=== PATIENT | male | born 1970 | race Native Hawaiian/Other Pacific Islander ===

== ENCOUNTER → 2016-08-27 | Outpatient (CLI) | payer OTHER ==
--- NOTE | 2016-08-27 09:10 | MR ---
EXAMINATION TYPE: MR knee LT wo con DATE OF EXAM: 08/27/2016 8:08 AM COMPARISON: NONE HISTORY: left knee pain TECHNIQUE: Multiplanar, multisequence imaging of the left knee is performed without IV contrast. FINDINGS: MEDIAL MENISCUS: There is pseudoextrusion of the medial meniscus. There is linear signal along the in ferior articular surface extending to the body suspicious for linear simple tear. LATERAL MENISCUS: Intrasubstance signal seen within the posterior horn compatible with myxoid degener ation. CRUCIATE LIGAMENTS: There is marked thickening and edema within the anterior cruciate ligament compat ible with a tear. PCL is intact. COLLATERAL LIGAMENTS: The medial collateral ligament and lateral collateral ligament complex are inta ct and unremarkable. EXTENSOR MECHANISM: Visualized quadriceps and patellar tendons are intact. EFFUSION: No significant suprapatellar joint effusion. POPLITEAL CYST: 1 x 1 x 3 cm septated popliteal fossa cyst TRICOMPARTMENT SPACES: Narrowing of the me dial compartment of the knee joint and patellofemoral joint noted. No erosive changes. BONE MARROW SIGNAL: No focal abnormal marrow signal is appreciated. IMPRESSION: 1. ACL tear 2. Linear tear posterior horn medial meniscus 3. Osteoarthritis
--- NOTE | 2016-08-27 22:08 | MR ---
EXAMINATION TYPE: MR knee RT wo con DATE OF EXAM: 08/27/2016 8:09 AM COMPARISON: Radiograph 09/12/2014 HISTORY: 46-year-old male with right knee pain TECHNIQUE: Multiplanar, multisequence imaging of the right knee is performed without IV contrast. FINDINGS: ACL is nonvisualized and appears ruptured. PCL, MCL, and LCL complex appear intact. The medial meniscus is diffusely degenerative, torn, an extruded with a 8 mm fragment in the superior gutter. Mild diffuse thinning of medial compartment articular cartilage without any high grade cartilage lesi on seen. There is degenerative signal within the lateral meniscus though some of the signal may contact the ti bial articular surface along the anterior horn seen only on one or 2 sagittal slices. The lateral men iscus is partially discoid. Overall lateral and patellofemoral compartment articular cartilage volume is maintained. Extensor mechanism is intact. Incidental bipartite patella. There is a small knee joint effusion and trace Smith's cyst. There is a 1.4 cm ganglion cyst at the o rigin of the medial head of the gastrocnemius and a 1.6 cm ganglion cyst posteriorly to the tibial at tachment of the PCL. Within the infrapatellar region, there is a heterogeneous structure showing some small cystic areas, predominant areas of cartilage signal, and some curvilinear low signal areas as well measuring 3.1 cm craniocaudal and 3.6 cm wide. There is has some mass effect bowing the patellar tendon anteriorly es pecially the distal lateral patellar tendon fibers. No underlying osseous erosions. In retrospect, th e radiographs of 09/12/2014 show a soft tissue shadow in the same region approximately of similar size . There is normal popliteal artery anatomy in muscle bulk. No suspicious bone marrow replacement. IMPRESSION: 1. Chronic ACL rupture given the lack of acute bone bruises. 2. Diffusely degenerative, torn, and extruded medial meniscus with an 8 mm fragment in the superior g utter. There is mild degenerative thinning of medial compartment articular cartilage. 3. Degenerative signal within a partially discoid lateral meniscus. Some of the signal within the ant erior horn may contact the tibial surface, possible tiny tear. 4. A 3.1 x 3.6 cm mass located in inferior Hoffa's fat has slight mass effect onto the overlying brooks llar tendon, but in retrospect, may have been present on the 09/12/2014 radiographs. There are some sm all cystic areas, larger areas which show signal similar to cartilage, and additional low signal area s as well. Differential considerations include giant intra-articular extrasynovial osteochondroma/par a-articular osteochondroma and PVNS with the former being favored given areas of cartilage signal and relative indolent course. There are also no osseous erosions to help support PVNS at this time. Cons ider surgical excision. 5. Small knee joint effusion and trace Smith's cyst.
== END | disposition home or self-care (01) ==
LOC: RADMRIMAIN 07:15
PROVIDERS: ATTEND Psychiatry & Neurology Pain Medicine
DX: M25.461 Effusion, right knee (principal); M71.21 Synovial cyst of popliteal space [Baker], right knee; S83.512A Sprain of anterior cruciate ligament of left knee, initial encounter; S83.242A Other tear of medial meniscus, current injury, left knee, initial encounter; M17.12 Unilateral primary osteoarthritis, left knee

== ENCOUNTER → 2017-06-02 | Outpatient (CLI) | payer OTHER ==
--- NOTE | 2017-06-02 10:39 | MR ---
EXAMINATION TYPE: MR lumbar spine wo con DATE OF EXAM: 06/02/2017 COMPARISON: NONE HISTORY: Low back pain TECHNIQUE: T1 and T2 axial and sagittal images of the lumbar spine are submitted. FINDINGS: There is no abnormal signal seen within the visualized spinal cord or paraspinal soft tissu es. At L1-2 there is degenerative disc disease with right paracentral broad-based disc herniation resulti ng in moderate anterior compression of thecal sac. Moderate right neural foraminal encroachment mild left foraminal encroachment. Facet arthropathy noted with evidence of spinal stenosis. At L2-3 there is moderate to severe degenerative disc disease. Broad-based central disc protrusion or small herniation results in moderate compression of thecal sac. Hypertrophic change of the ligamentu m flavum and facets contribute to moderate spinal stenosis and bilateral foraminal encroachment At L3-4 there is severe degenerative disc disease with broad-based central disc protrusion or herniat ion resulting in moderate central stenosis and bilateral foraminal encroachment. Hypertrophic change and ligamentum flavum and facet joints contribute. At L4-5 there is moderate to severe degenerative disc disease with a large central and right paracent ral disc herniation resulting in severe compression of the thecal sac. There is moderate bilateral fo raminal encroachment. At L5-S1 there is no disc herniation or canal stenosis. There is facet arthropathy. Neural foramina a re mildly narrowed. IMPRESSION: 1. Multilevel moderate to severe degenerative disc disease with multilevel disc herniations resulting in multilevel significant canal stenosis and foraminal encroachment. Large right paracentral disc he rniation L4-L5 results in right-sided foraminal encroachment and severe compression of the thecal sac .
== END | disposition home or self-care (01) ==
LOC: RADMRIMAIN 10:03
PROVIDERS: ATTEND Psychiatry & Neurology Neurology
DX: M48.061 Spinal stenosis, lumbar region without neurogenic claudication (principal); M51.26 Other intervertebral disc displacement, lumbar region; M51.36 Other intervertebral disc degeneration, lumbar region
CPT/HCPCS: 72148

== ENCOUNTER → 2022-10-18 | Outpatient (CLI) | payer OTHER ==
--- NOTE | 2022-10-19 07:37 | CT ---
EXAMINATION TYPE: CT sinus wo con DATE OF EXAM: 10/18/2022 COMPARISON: HISTORY: chronic maxillary sinusitis. CT DLP: 770.[address] of the paranasal sinuses was performed in the axial and coronal planes. Bone and soft tissue settings are submitted. The paranasal sinuses demonstrate normal aeration and development. There is mucosal thickening throughout the maxillary, ethmoidal, sphenoid and frontal sinuses compati ble hathaway chronic sinusitis. There is obstruction of the bilateral ostiomeatal units. Nasal septum is m ildly deviated from right to left. No bony destructive changes are seen within the field of view. IMPRESSION: Chronic pansinusitis with obstruction of the bilateral ostiomeatal units.
== END | disposition home or self-care (01) ==
LOC: RADCTMAIN 19:00
PROVIDERS: ATTEND Otolaryngology Otology & Neurotology
DX: J32.4 Chronic pansinusitis (principal); J32.0 Chronic maxillary sinusitis
CPT/HCPCS: 70486

== ENCOUNTER → 2023-05-13 | Outpatient (CLI) | payer OTHER ==
--- NOTE | 2023-05-14 11:08 | MR ---
EXAMINATION TYPE: MR knee RT wo con DATE OF EXAM: 05/13/2023 COMPARISON: 08/27/2016 HISTORY: Right knee pain, locking, and swelling for years. TECHNIQUE: Multiplanar, multisequence imaging of the right knee is performed without IV contrast. FINDINGS: The osseous structures are intact and there is no bone contusion or fracture. There is a moderate joint effusion, larger in size compared to previous. There is been interval thinning of the medial patellar facet cartilage. There has been interval devel opment of a large cartilaginous defect of the lateral femoral condyle. There is persistent mild osteo arthritic change of the medial compartment where there is mild thinning of the articular cartilage an d hypertrophic spurring of the medial femoral condyle. There has been interval development of abnormal signal intensity of the medial collateral ligament co nsistent with grade 1-2 medial collateral ligament strain. As on the prior study there is a large fla p tear of the medial meniscus with a fragment displaced in the superior gutter beneath the medial col lateral ligament. There is no tear of the lateral meniscus. There is a chronic complete tear of the anterior cruciate ligament. The posterior cruciate ligament i s intact. The mass in the infrapatellar region seen on the prior study has decreased markedly in size and signa l intensity and is markedly smaller and hypointense. The patellar tendon and quadriceps tendon are in tact. IMPRESSION: 1. No change in the chronic complete ACL tear. 2. No change in the large flap tear of the medial meniscus as described above. 3. Moderate joint effusion. Increased when compared to previous. 4. Interval development of a grade 1-2 strain of the medial collateral ligament. 5.. Marked reduction in size and signal intensity in the previously described mass in the infrapatell ar region. Normal patellar tendon. 6. Interval development of a large cartilage defect in the lateral femoral condyle. 7. Interval development of osteoarthritic change of the patellofemoral compartment with moderate to m arked thinning of the cartilage of the medial patellar facet.
== END | disposition home or self-care (01) ==
LOC: RADMRIMAIN 19:04
PROVIDERS: ATTEND Orthopaedic Surgery
DX: S83.241A Other tear of medial meniscus, current injury, right knee, initial encounter (principal); M17.11 Unilateral primary osteoarthritis, right knee; M25.461 Effusion, right knee; M23.631 Other spontaneous disruption of medial collateral ligament of right knee; X58.XXXA Exposure to other specified factors, initial encounter